=== PATIENT | female | born 1980 | race American Indian/Alaskan Native ===

== ENCOUNTER 2016-12-20 06:37 | Day surgery (SDC) | payer MEDICAID ==
[~2016-12-20 06:37] MED LIST: NACL 0.9% 1000 ML 1,000 ML IV SCH; PEPCID PO NR; VERSED IV NR
[2016-12-20] MEDS ORDERED: DILAUDID ONE (07:34)
[2016-12-20] MEDS ORDERED: XYLOCAINE MPF 2% ONE (07:34)
[2016-12-20] MEDS ORDERED: DIPRIVAN 10 MG/ML IV ONE (07:34)
[2016-12-20] MEDS ORDERED: VANCOMYCIN/NS 1 GM/250 ML 1 GM/250 ML BAG IV NR (08:00)
--- NOTE | 2016-12-20 08:05 | Anesthesia Day of Surgery ---
Anesthesia Day of Surgery - Day of Surgery Patient Examined: Yes Patient H&P Reviewed: Yes Patient is NPO: Yes
--- NOTE | 2016-12-20 08:05 | Anesthesia Consultation ---
Anesthesia Consult and Med Hx Date of service: 12/20/16 - Airway Anesthetic Teeth Evaluation: Good ROM Head & Neck: Adequate Mental/Hyoid Distance: Adequate Mallampati Class: Class II Intubation Access Assessment: Probably Good - Pulmonary Exam CTA: Yes - Cardiac Exam Cardiac Exam: RRR - Pre-Operative Health Status ASA Pre-Surgery Classification: ASA2 Proposed Anesthetic Plan: General - Pulmonary Hx Smoking: No SOB: No Hx Sleep Apnea: No (SYED PRE SCREEN HIGH RISK) - Central Nervous System Hx Psychiatric Problems: No - Gastrointestinal Hx Gastroesophageal Reflux Disease: Yes (occassional) - Other Systems Hx Alcohol Use: No Hx Substance Use: Yes (OCC MARIJUANA) Hx Cancer: No Hx Obesity: Yes
[2016-12-20] MEDS ORDERED: DILAUDID IV PRN (08:40)
[2016-12-20] MEDS ORDERED: ZOFRAN IV PRN (08:40)
[2016-12-20] MEDS ORDERED: XYLOCAINE 1%/ EPI 1:100,000 INFILTRATI ONE ×2 (09:09→09:10)
[2016-12-20] MEDS ORDERED: BACTROBAN 2% ONE (09:09)
[2016-12-20] MEDS ORDERED: MARCAINE 0.5% 0 ML INFILTRATI ONE (09:09)
[2016-12-20] MEDS ORDERED: MINERAL OIL TOPICAL LIGHT TP ONE (09:09)
[2016-12-20] MEDS ORDERED: DECADRON ONE (09:18)
[2016-12-20] MEDS ORDERED: BENADRYL ONE (10:26)
--- NOTE | 2016-12-20 11:00 | Post Anesthesia Evaluation ---
- Post Anesthesia Evaluation Patient Participated: Yes Airway Patent: Yes Stable Respiratory Function: Yes Nausea/Vomiting: No Temp > 96.8F: Yes Pain Manageable: Yes Adequeate Hydration: Yes Anesthesia Complications: No Block Receding Appropriately: Not Applicable Patient on Ventilator: No
[2016-12-20] MEDS ORDERED: BENADRYL IV ONE (11:24)
--- NOTE | 2016-12-20 13:01 | Operative Report ---
SERVICE: PLASTIC SURGERY. PREOPERATIVE DIAGNOSES: 1. Open wound, left axilla. 2. Hidradenitis suppurativa. POSTOPERATIVE DIAGNOSES: 1. Open wound, left axilla. 2. Hidradenitis suppurativa. PROCEDURE: 1. Tangential excisional prep of left axilla greater than 50 square cm. 2. Split thickness skin graft to left axilla 200 square cm. SURGEON: Renny Hare MD DESCRIPTION OF PROCEDURE: The patient was brought to the operating room and placed on the table in supine position. Following administration of general anesthesia, the left axilla and left thigh were prepped with Betadine solution, draped in usual sterile manner. A #10 blade scalpel was used to tangentially excise the wound back to healthy bleeding tissue. A Fabricio Brown dermatome was used to harvest a split thickness skin graft from the left thigh measuring ____ of an inch. Meshed one half to one, secured in place over the recipient site with amara, Xeroform gauze and a compressive dressing. The patient tolerated the procedure well and returned to recovery room in stable condition. JOB# [id number] FTW/DOMENICO
[2016-12-20 15:00] VITALS: BP 120/76
== END 2016-12-20 13:00 | disposition home or self-care (01) ==
LOC: OR 06:37
PROVIDERS: ATTEND Plastic Surgery
DX: L73.2 Hidradenitis suppurativa (principal); K21.9 Gastro-esophageal reflux disease without esophagitis; F12.90 Cannabis use, unspecified, uncomplicated; E66.9 Obesity, unspecified; Z68.37 Body mass index [BMI] 37.0-37.9, adult
CPT/HCPCS: 11451; 15100; 15101; 81025; J1100; J1170; J1200; J2704; J3370; J7030; J2250

== ENCOUNTER 2017-02-25 21:45 | Emergency (ER) | payer SELFPAY ==
[2017-02-25 22:41] VITALS: BP 157/96
[2017-02-25 23:53] LABS: Bilirubin,Urine NEG (Negative); Blood,Urine LG (Negative); Ketones,Urine NEG (Negative); Leukocyte Esterase,Urine NEG (Negative); Mucus,Urine FEW /HPF; Nitrite,Urine NEG (Negative); Protein,Urine <15 mg/dL mg/dL (Negative); Urobilinogen,Urine < 2.0 mg/dL (<2.0)
--- NOTE | 2017-02-26 00:22 | Ultrasound Report ---
FINAL REPORT PROCEDURE: US OB \T\lt; = 14 WEEKS FETUS TECHNIQUE: Real-time transabdominal sonography of the uterus, placenta, amniotic fluid, adnexa, and fetus was performed with image documentation. Measurements were obtained to determine age/size. M-mode Doppler was used to document heartbeat. CPT 67902 HISTORY: recent /severe pain and bleeding COMPARISON: Transvaginal OB ultrasound also performed today. FINDINGS: The report for this exam was generated using images from both transabdominal and transvaginal OB ultrasound both performed today. There is an oval fluid density seen in the endometrial canal. This could represent residual fluid or hemorrhage from the recent . I cannot exclude residual gestational sac. I do not see a pole or heartbeat. This measures approximately 1.2 x 2.6 centimeters. Uterus is otherwise unremarkable measuring 13.5 x 3.9 x 4.7 centimeter. Right and left ovaries were not visualized. No abnormal adnexal masses are identified. IMPRESSION: There is an oval fluid collection seen in the endometrial canal. This may represent retained products of conception, portion of the gestational sac versus hemorrhage. pole and heartbeat are not visualized. Uterus is otherwise unremarkable. Neither ovary was seen. No abnormal adnexal masses are identified.
--- NOTE | 2017-02-26 00:23 | Ultrasound Report ---
FINAL REPORT PROCEDURE: US OB TRANSVAGINAL TECHNIQUE: Real-time transvaginal sonography of the uterus, placenta, amniotic fluid, adnexa, and fetus was performed with image documentation. Measurements were obtained to determine age/size. M-mode Doppler was used to document heartbeat. CPT 66429 HISTORY: recent ,severe pain/bleeding COMPARISON: Prior transvaginal OB ultrasound also performed today. FINDINGS: The report for this exam was generated using images from both transabdominal and transvaginal OB ultrasound both performed today. There is an oval fluid density seen in the endometrial canal. This could represent residual fluid or hemorrhage from the recent . I cannot exclude residual gestational sac. I do not see a pole or heartbeat. This measures approximately 1.2 x 2.6 centimeters. Uterus is otherwise unremarkable measuring 13.5 x 3.9 x 4.7 centimeter. Right and left ovaries were not visualized. No abnormal adnexal masses are identified. IMPRESSION: There is an oval fluid collection seen in the endometrial canal. This may represent retained products of conception, portion of the gestational sac versus hemorrhage. pole and heartbeat are not visualized. Uterus is otherwise unremarkable. Neither ovary was seen. No abnormal adnexal masses are identified.
[2017-02-26 00:56] LABS: Hematocrit 36.3 % (30.3-42.9); Hemoglobin 11.6 gm/dl (10.1-14.3); Mean Corpuscular HGB Conc 32 % (30-34); Mean Corpuscular Volume 75 fl (79-97); Platelet Count 256 K/mm3 (140-440); Red Blood Count 4.86 M/mm3 (3.65-5.03); Red Cell Distribution Width 17.8 % (13.2-15.2); White Blood Count 10.4 K/mm3 (4.5-11.0)
[2017-02-26 01:04] LABS: Mean Corpuscular Hemoglobin 24 pg (28-32)
[2017-02-26 01:09] LABS: Anion Gap 15 mmol/L; Blood Urea Nitrogen 14 mg/dL (7-17); Carbon Dioxide 27 mmol/L (22-30); Chloride 98.6 mmol/L (98-107); Glucose 124 mg/dL (65-100); Potassium 3.6 mmol/L (3.6-5.0); Sodium 137 mmol/L (137-145)
--- NOTE | 2017-02-27 10:55 | ED Elopement Review ---
ED Pt Elopement review - Results review Lab results: Laboratory Tests 02/25/17 02/26/17 02/26/17 23:17 00:24 00:24 WBC 10.4 RBC 4.86 Hgb 11.6 Hct 36.3 MCV 75 L MCH 24 L MCHC 32 RDW 17.8 H Plt Count 256 Sodium 137 Potassium 3.6 Chloride 98.6 Carbon Dioxide 27 Anion Gap 15 BUN 14 Creatinine 0.8 Estimated GFR > 60 BUN/Creatinine Ratio 17.50 Glucose 124 H Calcium 9.0 HCG, Quant Urine Color Yellow Urine Turbidity Clear Urine pH 5.0 Ur Specific [place] 1.023 Urine Protein <15 mg/dl Urine Glucose (UA) Neg Urine Ketones Neg Urine Blood Lg Urine Nitrite Neg Urine Bilirubin Neg Urine Urobilinogen < 2.0 Ur Leukocyte Esterase Neg Urine WBC (Auto) 3.0 Urine RBC (Auto) 19.0 U Epithel Cells (Auto) 6.0 Urine Mucus Few 02/26/17 00:24 WBC RBC Hgb Hct MCV MCH MCHC RDW Plt Count Sodium Potassium Chloride Carbon Dioxide Anion Gap BUN Creatinine Estimated GFR BUN/Creatinine Ratio Glucose Calcium HCG, Quant < 2 Urine Color Urine Turbidity Urine pH Ur Specific [place] Urine Protein Urine Glucose (UA) Urine Ketones Urine Blood Urine Nitrite Urine Bilirubin Urine Urobilinogen Ur Leukocyte Esterase Urine WBC (Auto) Urine RBC (Auto) U Epithel Cells (Auto) Urine Mucus - Call Back decision Pt Call Back Decision: No action required
== END 2017-02-26 03:55 | disposition left against medical advice (07) ==
LOC: ED 21:45
DX: R10.9 Unspecified abdominal pain (principal); Z53.21 Procedure and treatment not carried out due to patient leaving prior to being seen by health care provider
CPT/HCPCS: 36415; 76801; 76817; 80048; 81001; 84702; 85027

== ENCOUNTER 2017-11-07 05:59 | Day surgery (SDC) | payer MEDICAID, OTHER ==
[~2017-11-07 05:59] MED LIST changes: -NACL 0.9% 1000 ML 1,000 ML IV SCH; +NACL 0.9% IR ONE; -PEPCID PO NR; -VERSED IV NR
[2017-11-07] MEDS ORDERED: VANCOMYCIN/NS 1 GM/250 ML 1 GM/250 ML BAG IV NR (06:46)
[2017-11-07] MEDS ORDERED: NACL BACTERIOSTATIC INFILTRATI ONE (06:54)
[2017-11-07] MEDS ORDERED: VANCOMYCIN/0.45 NS 1 GM/250 ML 1 GM/250 ML BAG IV ONE (07:00)
[2017-11-07] MEDS ORDERED: NACL 0.9% 1000 ML 1,000 ML IV SCH (07:00)
[2017-11-07 07:25] LABS: Basophils % (Auto) 0.6 % (0.0-1.8); Eosinophils # (Auto) 0.1 K/mm3 (0.0-0.4); Eosinophils % (Auto) 1.8 % (0.0-4.3); Hematocrit 40.6 % (30.3-42.9); Hemoglobin 12.8 gm/dl (10.1-14.3); Lymphocytes % (Auto) 26.6 % (13.4-35.0); Mean Corpuscular HGB Conc 32 % (30-34); Mean Corpuscular Volume 76 fl (79-97); Monocytes # (Auto) 0.6 K/mm3 (0.0-0.8); Monocytes % (Auto) 7.5 % (0.0-7.3); Platelet Count 228 K/mm3 (140-440); Red Blood Count 5.37 M/mm3 (3.65-5.03); Red Cell Distribution Width 16.5 % (13.2-15.2)
[2017-11-07 07:27] LABS: Mean Corpuscular Hemoglobin 24 pg (28-32)
[2017-11-07] MEDS ORDERED: SUBLIMAZE ONE (07:28)
[2017-11-07] MEDS ORDERED: XYLOCAINE MPF 2% ONE (07:28)
[2017-11-07] MEDS ORDERED: DIPRIVAN 10 MG/ML IV ONE (07:29)
[2017-11-07] MEDS ORDERED: TORADOL IV PRN (07:33)
[2017-11-07] MEDS ORDERED: ZOFRAN IV PRN (07:33)
[2017-11-07] MEDS ORDERED: DILAUDID IV PRN ×2 (07:33→09:48)
[2017-11-07] MEDS ORDERED: DEMEROL IV PRN (07:33)
--- NOTE | 2017-11-07 07:37 | Anesthesia Day of Surgery ---
Anesthesia Day of Surgery - Day of Surgery Patient Examined: Yes Patient H&P Reviewed: Yes Patient is NPO: Yes
--- NOTE | 2017-11-07 07:37 | Anesthesia Consultation ---
Anesthesia Consult and Med Hx - Airway Anesthetic Teeth Evaluation: Poor ROM Head & Neck: Adequate Mental/Hyoid Distance: Adequate Mallampati Class: Class III Intubation Access Assessment: Possibly Difficult - Pulmonary Exam CTA: Yes - Pre-Operative Health Status ASA Pre-Surgery Classification: ASA3 Proposed Anesthetic Plan: General - Pulmonary Hx Smoking: No SOB: No Hx Sleep Apnea: No (SYED PRE SCREEN HIGH RISK) - Central Nervous System Hx Psychiatric Problems: No - Gastrointestinal Hx Gastroesophageal Reflux Disease: Yes (occassional) - Other Systems Hx Alcohol Use: Yes (OCCAS) Hx Substance Use: Yes (OCC MARIJUANA) Hx Cancer: No Hx Obesity: Yes
[2017-11-07] MEDS ORDERED: PEPCID IV NR (08:00)
[2017-11-07] MEDS ORDERED: REGLAN IV NR (08:00)
[2017-11-07] MEDS ORDERED: NACL 0.9% IR ONE (08:13)
--- NOTE | 2017-11-07 08:28 | Discharge Summary ---
Short Stay Discharge Plan Activity: other (Avoid strenuous activity) Weight Bearing Status: Full Weight Bearing Diet: regular Wound: remove dressing (72hrs.) Follow up with: ERASTO MORRISSEY MD [Primary Care Provider] - 6 Weeks WORK,MANSOOR Raines JR, MD [Staff Physician] - 7 Days
--- NOTE | 2017-11-07 08:30 | Short Stay Summary ---
Short Stay Documentation Date of service: 11/07/17 - Allergies and Medications Current Medications: Allergies amoxicillin Allergy (Verified 11/03/17 13:18) Unknown latex Allergy (Verified 11/03/17 13:18) Hives meperidine HCl [From Demerol] Allergy (Verified 11/03/17 13:18) Anaphylaxis Penicillins Allergy (Verified 11/03/17 13:18) Unknown Home Medications Medication Instructions Recorded Confirmed Last Taken Type Ranitidine HCl [Zantac 150 MG TAB] 150 mg PO DAILY 11/03/17 11/03/17 Unknown History glipiZIDE [Glipizide] 10 mg PO QAM 11/03/17 11/03/17 Unknown History Active Medications Famotidine (Pepcid) 20 mg IV PREOP NR Stop: 11/07/17 12:00 Sodium Chloride (Nacl 0.9% 1000 Ml) 1,000 mls @ 75 mls/hr IV DIRECT SUNIL Metoclopramide HCl (Reglan) 10 mg IV PREOP NR Stop: 11/07/17 23:00 Ondansetron HCl (Zofran) 4 mg IV ONCE PRN PRN Reason: Nausea And Vomiting - Brief post op/procedure progress note Date of procedure: 11/07/17 Pre-op diagnosis: Hidradenitis Suppurativa Post-op diagnosis: same Procedure: Excision of Hidradenitis Supurativa of LT Breast/Mons Pubis/Bilateral Thighs with Complex Closure Anesthesia: GETA Surgeon: MANSOOR MUSA JR Estimated blood loss: minimal Specimen disposition: to lab Condition: stable - Disposition Condition at discharge: Good Disposition: DC-[id number] TO HOME OR SELFCARE Short Stay Discharge Plan Follow up with: ERASTO MORRISSEY MD [Primary Care Provider] - 6 Weeks MANSOOR MUSA JR, MD [Staff Physician] - 7 Days
[2017-11-07] MEDS ORDERED: ZOFRAN ONE (08:38)
--- NOTE | 2017-11-07 09:49 | Post Anesthesia Evaluation ---
- Post Anesthesia Evaluation Patient Participated: Yes Airway Patent: Yes Stable Respiratory Function: Yes Nausea/Vomiting: No Temp > 96.8F: Yes Pain Manageable: Yes Adequeate Hydration: Yes Anesthesia Complications: No
--- NOTE | 2017-11-07 10:12 | Operative Report ---
SERVICE: Plastic Surgery PREOPERATIVE DIAGNOSIS: Hidradenitis suppurativa of left breast, mons pubis and bilateral thighs. SURGEON: Renny Hare M.D. HEALTH UNIT COORDINATOR: Nabeel Odom CSA DESCRIPTION OF PROCEDURE: 1. Excision of hidradenitis suppurativa of left breast. 2. Complex closure of left breast, 7 cm. 3. Excision of hidradenitis suppurativa of mons pubis x 2. 4. Adjacent tissue transfer closure of mons pubis, 35 cm2. 5. Excision of hidradenitis suppurativa of bilateral thighs. 6. Complex closure of bilateral thighs, 10 cm. DESCRIPTION OF PROCEDURE: The patient was brought to the operating room and placed on the table in supine position. Following administration of general anesthesia, the left breast, mons pubis and bilateral thighs were prepped with Betadine solution, draped in usual sterile manner. A #10 blade scalpel was used to excise all affected areas circumferentially using a 10 blade scalpel, deepened through subcutaneous fat and breast tissue using the electrocautery. Specimen sent to pathology. Hemostasis controlled using electrocautery and closure was performed in layers using interrupted and running subcuticular 2-0 Monocryl sutures for the breast and for the mons pubis. There was extensive undermining that was performed with rotation and advancement of tissue across the defects, closed in layers using interrupted 2-0 Monocryl sutures followed by amara. Similarly, the thighs were closed with interrupted 2-0 Monocryl sutures followed by amara. Ends of each surgical incision were trimmed of skin in order to prevent any dog ear deformities. Sterile dressing was applied. The patient tolerated procedure well and returned to recovery room in stable condition. JOB# [id number] FTW/NTS
[2017-11-07] MEDS ORDERED: MOTRIN PO PRN (10:30)
[2017-11-07 11:46] VITALS: BP 130/82
== END 2017-11-07 11:25 | disposition home or self-care (01) ==
LOC: OR 05:59
PROVIDERS: ATTEND Plastic Surgery
DX: L73.2 Hidradenitis suppurativa (principal); K21.9 Gastro-esophageal reflux disease without esophagitis; Z88.0 Allergy status to penicillin; Z88.6 Allergy status to analgesic agent; Z88.1 Allergy status to other antibiotic agents; Z91.040 Latex allergy status; Z79.899 Other long term (current) drug therapy
CPT/HCPCS: 11450; 11462; 11471; 14000; 36415; 81025; 82962; 85025; 88305; J2405; J2704; J2765; J3010; J3370; J7030